=== PATIENT | male | born 1990 | race Caucasian/White ===

== ENCOUNTER 2016-05-28 01:23 | Emergency (ER) | payer SELFPAY ==
[~2016-05-28] VITALS: Ht 177.8 cm; Wt 92.7 kg
[2016-05-28 02:04] LABS: EOSINOPHIL COUNT 0.2 K/uL (0-0.3); HEMATOCRIT 45.6 % (38.0-50.0); IMMATURE GRANULOCYTE (%) 0.3 % (0.0-0.7); IMMATURE GRANULOCYTE COUNT 0.2 K/uL; LYMPHOCYTE COUNT 1.1 K/uL (1.0-2.8); MCH 28.7 PG (29.0-34.0); MCHC 35.3 G/DL (30.0-36.0); MCV 81.3 FL (86-99); MEAN PLAT.VOLUME 10.8 uM^3 (9.0-12.4); MONOCYTE (%) 10.4 % (3-12); MONOCYTE COUNT 0.8 K/uL (0-0.8); NEUTROPHIL (%) 73.1 % (45-76); NEUTROPHIL COUNT 5.8 K/uL (1.8-6.4); PLATELET COUNT 214 K/uL (156-360); RBC DIS.WIDTH-CV 12.4 % (11.8-14.6); RBC DIS.WIDTH-SD 36.7 % (39-53); RED BLOOD COUNT 5.61 M/uL (4.00-5.50); WHITE BLOOD COUNT 7.9 K/uL (4.1-10.2)
[2016-05-28 02:23] LABS: CHLORIDE 111 mEq/L (99-109); SODIUM 145 mEq/L (136-147)
[2016-05-28 02:25] LABS: GLUCOSE 102 mg/dL (70-99)
[2016-05-28 02:26] LABS: ANION GAP 10 MEQ/L (2-14)
[2016-05-28 02:27] LABS: TOTAL BILIRUBIN 0.6 mg/dL (0.0-1.0)
[2016-05-28 02:29] LABS: ALKALINE PHOSPHATASE 64 IU/L (3-129); GFR ESTIMATE (CALCULATED) > 59 mL/min/
[2016-05-28 02:30] LABS: UREA NITROGEN (BUN) 19 mg/dL (9-23)
[2016-05-28 02:34] LABS: INTERNAL CONTROL VALID? YES; MONOSPOT (MONONUCLEOSIS SEROL) NEGATIVE
[2016-05-28 02:56] LABS: ADD MIUA? NO; BILIRUBIN NEGATIVE; BLOOD NEGATIVE; COLOR YELLOW ((YELLOW)); GLUCOSE (STRIP) NEGATIVE; KETONES 5; LEUKOCYTES NEGATIVE; NITRITE NEGATIVE; PROTEIN (STRIP) NEGATIVE; SPECIFIC GRAVITY 1.032 (1.000-1.030); UCUL ADDED? NO; UROBILINOGEN 0.2 MG/DL (0.2-1.0)
[2016-05-28] MEDS ORDERED: PEN-VEE K,VEET500 MG PO (03:10)
[2016-05-28 03:38] VITALS: BP 148/90
[2016-05-29 12:44] LABS: CHLAMYDIA TRACHOMATIS NEGATIVE; NEISSERIA GONORRHOEAE NEGATIVE
== END 2016-05-28 03:49 | disposition home or self-care (01) ==
LOC: EME 01:23
PROVIDERS: Emergency Medicine
DX: J02.0 Streptococcal pharyngitis (principal); M79.1 Myalgia; R59.1 Generalized enlarged lymph nodes; M54.5 Low back pain; R10.30 Lower abdominal pain, unspecified; R30.0 Dysuria; Z11.3 Encounter for screening for infections with a predominantly sexual mode of transmission; F17.200 Nicotine dependence, unspecified, uncomplicated
CPT/HCPCS: 80053; 81003; 85025; 86308; 87491; 87591; 87651 90; 99281; 99284